=== PATIENT | male | born 1970 | race Hispanic/Latino ===

== ENCOUNTER 2019-12-21 05:38 | Emergency (ER) | payer SELFPAY ==
[2019-12-21] MEDS ORDERED: CEFAZOLIN/SWI 1gm 1 GM/10 ML SYR ONE (05:54)
[2019-12-21] MEDS ORDERED: TETANUS & DIPHTHERIA TOX,ADULT 0.5 ML VIAL ONE (05:54)
[2019-12-21] MEDS ORDERED: NA CHLORIDE 0.9% 1,000 ML ONE (05:55)
[2019-12-21 05:56] LABS: Absolute Lymphocytes (CBC) 1.8 K/uL (0.7-4.9); Basophils % 0.9 % (0-1.3); Hematocrit 38.5 % (39.6-49.0); Lymphocytes % 26.6 % (15.3-44.8); MPV 10.5 fL (7.6-11.3); RBC Red Blood Cell Count 4.37 M/uL (4.33-5.43)
[2019-12-21 06:18] LABS: ALT/SGPT 26 U/L (12-78); AST/SGOT 13 U/L (15-37); Albumin 3.4 g/dL (3.4-5.0); Alkaline Phosphatase 63 U/L (45-117); BUN Blood Urea Nitrogen 15 mg/dL (7-18); Bicarbonate 28 mmol/L (21-32); Bilirubin Direct 0.2 mg/dL (0-0.2); Bilirubin Total 0.6 mg/dL (0.2-1.0); Glucose Level 139 mg/dL (74-106); Lipase 101 U/L (73-393); Potassium 3.5 mmol/L (3.5-5.1); Protein, Total 6.1 g/dL (6.4-8.2); Sodium Level 144 mmol/L (136-145)
[2019-12-21] MEDS ORDERED: LIDOCAINE 1% W/EPI 1:100,000 MDV 50 ML VIAL ONE (06:30)
[2019-12-21] MEDS ORDERED: FENTANYL CITR 100 MCG/2 ML ONE (06:31)
--- NOTE | 2019-12-21 06:44 | EDPHYS ---
Physician Documentation [facility] Name: Presley Haji Age: 49 yrs Sex: Male : 1970 Arrival Date: 12/21/2019 Time: 05:39 Bed 3 Private MD: ED Physician Rashawn Guzman HPI: 12/20 05:45 This 49 yrs old Male presents to ER via EMS with unknown complaint. pkl 05:45 The patient or guardian complains of injury, a laceration, 10 cm(s), pain, that is pkl acute. The complaints affect the left forearm. Context: resulted from patient claimed he was cleaning his knife and accidentally cut his left forearm. Police was called, noticed arterial bleed and tourniquet was applied. Onset: The symptoms/episode began/occurred just prior to arrival. Associated signs and symptoms: The patient has no apparent associated signs or symptoms. Historical: - Allergies: 05:45 No Known Allergies; bb - Home Meds: 05:45 None [Active]; bb - PMHx: 05:45 None; bb - Immunization history:: Adult Immunizations up to date, Last tetanus immunization: unknown. - Social history:: Smoking status: Patient reports the use of cigarette tobacco products, smokes one pack cigarettes per day. Patient uses alcohol, occasionally. Patient/guardian denies using street drugs. ROS: 05:45 Eyes: Negative for injury, pain, redness, and discharge, ENT: Negative for injury, pkl pain, and discharge, Neck: Negative for injury, pain, and swelling, Cardiovascular: Negative for chest pain, palpitations, and edema, Respiratory: Negative for shortness of breath, cough, wheezing, and pleuritic chest pain, Abdomen/GI: Negative for abdominal pain, nausea, vomiting, diarrhea, and constipation, Back: Negative for injury and pain, : Negative for injury, bleeding, discharge, and swelling. 05:45 MS/extremity: Positive for laceration, of the left forearm. 05:45 Skin: Positive for of the left forearm. 05:45 Neuro: Negative for altered mental status. Exam: 05:45 Head/Face: Normocephalic, atraumatic. Eyes: Pupils equal round and reactive to light, pkl extra-ocular motions intact. Lids and lashes normal. Conjunctiva and sclera are non-icteric and not injected. Cornea within normal limits. Periorbital areas with no swelling, redness, or edema. ENT: Nares patent. No nasal discharge, no septal abnormalities noted. Tympanic membranes are normal and external auditory canals are clear. Oropharynx with no redness, swelling, or masses, exudates, or evidence of obstruction, uvula midline. Mucous membranes moist. Neck: Trachea midline, no thyromegaly or masses palpated, and no cervical lymphadenopathy. Supple, full range of motion without nuchal rigidity, or vertebral point tenderness. No Meningismus. Chest/axilla: Normal chest wall appearance and motion. Nontender with no deformity. No lesions are appreciated. Cardiovascular: Regular rate and rhythm with a normal S1 and S2. No gallops, murmurs, or rubs. Normal PMI, no JVD. No pulse deficits. Respiratory: Lungs have equal breath sounds bilaterally, clear to auscultation and percussion. No rales, rhonchi or wheezes noted. No increased work of breathing, no retractions or nasal flaring. Abdomen/GI: Soft, non-tender, with normal bowel sounds. No distension or tympany. No guarding or rebound. No evidence of tenderness throughout. Back: No spinal tenderness. No costovertebral tenderness. Full range of motion. Neuro: Awake and alert, GCS 15, oriented to person, place, time, and situation. Cranial nerves II-XII grossly intact. Motor strength 5/5 in all extremities. Sensory grossly intact. Cerebellar exam normal. Normal gait. 05:45 Musculoskeletal/extremity: Extremities: grossly normal except: noted in the left forearm: laceration, arterial bleed and lacerated tendons noted. Vital Signs: 05:42 BP 141 / 97; Pulse 66; Resp 18; Pulse Ox 100% on R/A; mg2 05:42 BP 143 / 91; Pulse 71; Resp 16 S; Pulse Ox 98% on R/A; Weight 90.72 kg (R); Height 5 bb ft. 8 in. (172.72 cm) (R); Pain 5/10; 05:43 Temp 98.2(O); mg2 05:53 BP 131 / 78; Pulse 68; Resp 16 S; Pulse Ox 95% on R/A; bb 07:00 BP 124 / 80; Pulse 68; Resp 18; Temp 98; Pulse Ox 97% on R/A; ea 05:42 Body Mass Index 30.41 (90.72 kg, 172.72 cm) bb Sherry Coma Score: 05:47 Eye Response: spontaneous(4). Verbal Response: oriented(5). Motor Response: obeys ea commands(6). Total: 15. Trauma Score (Adult): 05:47 Eye Response: spontaneous(1); Verbal Response: oriented(1); Motor Response: obeys ea commands(2); Systolic BP: > 89 mm Hg(4); Respiratory Rate: 10 to 29 per min(4); Sherry Score: 15; Trauma Score: 12 MDM: 05:40 Patient medically screened. pkl 05:45 Data reviewed: vital signs, nurses notes. ED course: Talked to vascular surgeon at [facility]. Request patient be evaluated by our surgeon in this hospital. Talked to Dr. Maynard, will see patient in ER. 06:38 ED course: Dr. Maynard talked Vascular surgeon at [facility]. Accepted transfer . pkl 12/20 05:43 Order name: Basic Metabolic Panel; Complete Time: 06:44 mg2 12/20 05:43 Order name: CBC with Diff; Complete Time: 06:05 mg2 12/20 05:43 Order name: Hepatic Function; Complete Time: 06:44 mg2 12/20 05:43 Order name: Lipase; Complete Time: 06:44 mg2 12/20 05:43 Order name: TS; Complete Time: 06:44 mg2 12/20 06:27 Order name: Acetaminophen ea 12/20 06:27 Order name: Basic Metabolic Panel ea 12/20 06:27 Order name: PT-INR ea 12/20 06:27 Order name: Ptt, Activated ea 12/20 06:28 Order name: Acetaminophen Level EDMT 12/20 05:43 Order name: IV Saline Lock; Complete Time: 05:43 mg2 12/20 05:43 Order name: Labs collected and sent; Complete Time: 05:43 mg2 12/20 06:27 Order name: EKG; Complete Time: 06:28 ea 12/20 06:27 Order name: EKG - Nurse/Tech; Complete Time: 07:01 ea 12/20 06:27 Order name: Urine Dipstick-Ancillary (obtain specimen) ea Administered Medications: 05:46 Drug: Ancef 1 grams Route: IVPB; Site: right antecubital; rr5 05:46 Drug: NS 0.9% 1000 ml Route: IV; Rate: 1000 ml; Site: right antecubital; rr5 06:30 Follow up: Response: No adverse reaction; IV Status: Completed infusion; IV Intake: ea 1000ml 05:47 Drug: Tetanus-Diphtheria Toxoid Adult 0.5 ml {[employer]. Exp: rr5 05/06/2021. Lot #: [id number]. } Route: IM; Site: right deltoid; 07:10 Follow up: Response: No adverse reaction ea 06:20 Drug: fentaNYL (PF) 50 mcg Route: IVP; Site: right antecubital; ea 07:09 Follow up: Response: No adverse reaction; Pain is decreased; RASS: Alert and Calm (0) ea Disposition: 12/21/19 06:43 [facility] Diagnosis is Severe laceration left forearm. Arterial bleed. Lacerated tendons. - Reason for transfer: Higher level of care. - Accepting physician is Dr. Calix. - Condition is Stable. - Problem is new. - Symptoms are unchanged. Signatures: Dispatcher [employer] EDMS Rashawn Guzman MD MD pkl Macy Alfaro RN RN bb Antunez, Elena, RN RN ea Gardose, Michele, RN RN mg2 Roque, Raymond, RN RN rr5 Corrections: (The following items were deleted from the chart) 06:10 06:06 Wrist Left 3 View+RAD.RAD.BRZ ordered. EDMS EDMS 06:11 06:06 Forearm Left+RAD.RAD.BRZ ordered. EDMS EDMS 06:37 06:06 Forearm Left+RAD.RAD.BRZ ordered. EDMS EDMS 07:09 06:43 12/21/2019 06:43 Transfer ordered to [facility]. Diagnosis is Severe laceration ea left forearm. Arterial bleed. Lacerated tendons. Reason for transfer: Higher level of care. Accepting physician is Dr. Calix. Condition is Stable. Problem is new. Symptoms are unchanged. pkl
--- NOTE | 2019-12-21 06:44 | ER ---
Nurse's Notes [facility] Name: Presley Haji Age: 49 yrs Sex: Male : 1970 Arrival Date: 12/21/2019 Time: 05:39 Bed 3 Private MD: Diagnosis: Severe laceration left forearm. Arterial bleed. Lacerated tendons Presentation: 12/20 05:42 Chief complaint: EMS states: they were toned out by PD for report of pt accidentally bb cutting his left wrist while cleaning his pocket knife. EMS states there was a lot of blood on scene and PD had applied a tourniquet at 0500. Coronavirus screen: At this time, the client does not indicate any symptoms associated with coronavirus-19. Ebola Screen: No symptoms or risks identified at this time. Initial Sepsis Screen: Does the patient meet any 2 criteria? No. Patient's initial sepsis screen is negative. Does the patient have a suspected source of infection? No. Patient's initial sepsis screen is negative. Risk Assessment: Do you want to hurt yourself or someone else? Patient reports no desire to harm self or others. Onset of symptoms was December 21, 2019. 05:42 Method Of Arrival: EMS: [facility] bb 05:42 Acuity: FARHAD 1 bb 05:46 Care prior to arrival: Medication(s) given: fentanyl 100 mcg at 0524, LR 750 mLs IV bb initiated. 18 GA, in the right antecubital area. 05:48 Mechanism of Injury: Laceration sustained at home, while cooking, from knife, Injury ea was accidental. Trauma event details: Injury occurred in the [facility], Injury occurred: at home. Injury occurred: December 21, 2019. 05:53 Care prior to arrival: see note. bb Trauma Activation: Alert Physician: ED Physician; Name: ; Notified At: ; Arrived At: Physician: General Surgeon; Name: ; Notified At: ; Arrived At: Physician: Radiology; Name: ; Notified At: ; Arrived At: Physician: Respiratory; Name: ; Notified At: ; Arrived At: Physician: Lab; Name: ; Notified At: ; Arrived At: Historical: - Allergies: 05:45 No Known Allergies; bb - Home Meds: 05:45 None [Active]; bb - PMHx: 05:45 None; bb - Immunization history:: Adult Immunizations up to date, Last tetanus immunization: unknown. - Social history:: Smoking status: Patient reports the use of cigarette tobacco products, smokes one pack cigarettes per day. Patient uses alcohol, occasionally. Patient/guardian denies using street drugs. Screenin:44 Abuse screen: Denies threats or abuse. Denies injuries from another. Nutritional mg2 screening: No deficits noted. Tuberculosis screening: No symptoms or risk factors identified. Fall Risk IV access (20 points). Primary Survey: 05:45 NO uncontrolled hemorrhage observed. A: The patient is alert. A: Airway: patent. ea Breathing/Chest: Respiratory pattern: regular, Respiratory effort: spontaneous. Circulation: Skin color: pale, Skin temperature: warm. Disability Alert. Exposure/Environment: There is evidence of uncontrolled external hemorrhage. Provider notified immediately. Methods to control bleeding applied. Obvious injury(ies) are noted at this time: laceration to left forearm. 06:45 Reassessment Airway Airway Patent Breathing/Chest Respiratory pattern Regular ea Respiratory effort Spontaneous Unlabored. Assessment: 05:44 General: Appears in no apparent distress. Behavior is calm, cooperative. Pain: mg2 Complains of pain in left arm. Neuro: Level of Consciousness is awake, alert, obeys commands, Oriented to person, place, time, situation. Cardiovascular:. Respiratory: Airway is patent Respiratory effort is even, unlabored, Respiratory pattern is regular, symmetrical. GI: No signs and/or symptoms were reported involving the gastrointestinal system. : No signs and/or symptoms were reported regarding the genitourinary system. EENT: No signs and/or symptoms were reported regarding the EENT system. Derm: Wound noted left arm Wound is bleeding profusely, compression dressing applied Other: tendon cut and arterial bleeding noted from approximately 3 inches long, 1 inch deep. Musculoskeletal: Circulation, motion, and sensation intact. 06:31 Reassessment: Dr Maynard on phone with Chief of Vascular Surgery [facility] pt to bb be accepted. 06:57 Reassessment: Patient is alert, oriented x 3, equal unlabored respirations, skin bb warm/dry/pink. report called to Madonna WALKER at the ED [facility]. Pt signed MOT. Pressure dressing to left forearm clean, dry and intact. Vital Signs: 05:42 BP 141 / 97; Pulse 66; Resp 18; Pulse Ox 100% on R/A; mg2 05:42 BP 143 / 91; Pulse 71; Resp 16 S; Pulse Ox 98% on R/A; Weight 90.72 kg (R); Height 5 bb ft. 8 in. (172.72 cm) (R); Pain 5/10; 05:43 Temp 98.2(O); mg2 05:53 BP 131 / 78; Pulse 68; Resp 16 S; Pulse Ox 95% on R/A; bb 07:00 BP 124 / 80; Pulse 68; Resp 18; Temp 98; Pulse Ox 97% on R/A; ea 05:42 Body Mass Index 30.41 (90.72 kg, 172.72 cm) bb Trinidad Coma Score: 05:47 Eye Response: spontaneous(4). Verbal Response: oriented(5). Motor Response: obeys ea commands(6). Total: 15. Trauma Score (Adult): 05:47 Eye Response: spontaneous(1); Verbal Response: oriented(1); Motor Response: obeys ea commands(2); Systolic BP: > 89 mm Hg(4); Respiratory Rate: 10 to 29 per min(4); Trinidad Score: 15; Trauma Score: 12 ED Course: 05:37 Initiated trasfner to [facility] spoke with Мария. ar5 05:39 Patient arrived in ED. ar5 05:40 Rashawn Guzman MD is Attending Physician. pkl 05:44 No provider procedures requiring assistance completed. Maintain EMS IV. Dressing mg2 intact. Good blood return noted. Site clean \T\ dry. Gauge \T\ site: 18 \T\ RAC. 05:44 Patient has correct armband on for positive identification. mg2 05:45 Triage completed. bb 05:45 Niesha Mcdaniel, AARON is Primary Nurse. ea 05:45 Arm band placed on Patient placed in an exam room, on a stretcher, on pulse oximetry. bb 05:48 Patient maintains SpO2 saturation greater than 95% on room air. Thermoregulation: warm ea blanket given to patient. 05:48 done with Vascular Surgeon \T\ [facility]. ar5 05:[address] Maynard, he will be coming to the ER. ar5 06:33 Acceptance given by Мария Trevino. Pt. going to [facility] ER. Accepting physician josé luis Calix. Call report to [phone]. 06:43 [facility] will be here in 10 minutes. ar5 07:08 Patient transferred, IV remains in place. ea Administered Medications: 05:46 Drug: Ancef 1 grams Route: IVPB; Site: right antecubital; rr5 05:46 Drug: NS 0.9% 1000 ml Route: IV; Rate: 1000 ml; Site: right antecubital; rr5 06:30 Follow up: Response: No adverse reaction; IV Status: Completed infusion; IV Intake: ea 1000ml 05:47 Drug: Tetanus-Diphtheria Toxoid Adult 0.5 ml {[employer]. Exp: rr5 05/06/2021. Lot #: [id number]. } Route: IM; Site: right deltoid; 07:10 Follow up: Response: No adverse reaction ea 06:20 Drug: fentaNYL (PF) 50 mcg Route: IVP; Site: right antecubital; ea 07:09 Follow up: Response: No adverse reaction; Pain is decreased; RASS: Alert and Calm (0) ea Intake: 05:54 PO: 0ml; Total: 0ml. bb 06:30 IV: 1000ml; Total: 1000ml. ea Outcome: 06:43 ER care complete, transfer ordered by MD. mendoza 07:07 Transferred by ground EMS to [facility], Transfer form ea completed. 07:07 Condition: stable 07:07 Instructed on the need for transfer. 07:08 Patient's length of stay was not longer than 2 hours. ea 07:09 Patient left the ED. ea Signatures: Rashawn Guzman MD MD pkl Ballard, Brenda RN RN bb Niesha Mcdaniel, RN RN Kaushal Desai RN RN mg2 Roque, Raymond, RN RN rr5 Adrienne Henderson Corrections: (The following items were deleted from the chart) 05:59 05:48 Initiated trasfner to [facility] spoke with Мария ordonez 06:05 05:44 Derm: Wound noted left arm Wound is bleeding profusely, compression dressing mg2 applied mg2 06:53 06:50 Acceptance given by Мария Trevino. Pt. going to [facility]. Accepting ar[address] Dr[address] Canelo Calix. Call report to [phone] ar5
[2019-12-21 06:48] LABS: Protime INR 0.96
[2019-12-21 06:50] LABS: BUN Blood Urea Nitrogen 15 mg/dL (7-18); Bicarbonate 25 mmol/L (21-32); Glucose Level 138 mg/dL (74-106); Potassium 3.5 mmol/L (3.5-5.1); Sodium Level 144 mmol/L (136-145)
[2019-12-21 07:37] VITALS: BP 124/80; TEMP 98; O2SAT 97
== END 2019-12-21 07:09 | disposition short-term general hospital (02) ==
LOC: ER 05:38
DX: S56.922A Laceration of unspecified muscles, fascia and tendons at forearm level, left arm, initial encounter (principal); R58 Hemorrhage, not elsewhere classified; W26.0XXA Contact with knife, initial encounter; Y93.G3 Activity, cooking and baking; Y92.009 Unspecified place in unspecified non-institutional (private) residence as the place of occurrence of the external cause; Z23 Encounter for immunization; F17.210 Nicotine dependence, cigarettes, uncomplicated
CPT/HCPCS: 36415; 80048; 80076; 80329; 83690; 85025; 85610; 85730; 86850; 86900; 86901; 90471; 90714; 93005; 96361; 96374; 96375; 99291; G0390; J0690; J3010; J7030